=== PATIENT | male | born 1970 | race Caucasian/White ===

== ENCOUNTER 2019-02-15 00:29 | Emergency (ER) | payer MEDICARE ==
[~2019-02-15] VITALS: Ht 180.3 cm; Wt 82.1 kg
[~2019-02-15 00:29] MED LIST: BACTRIM DS 8001 TA1 PO; BUSPAR5 MG PO; CIPRO500 MG PO; FLOMAX0.4 MG PO; HALDOL5 MG PO; NAPROSYN500 MG PO; NKHM; SEROQUEL XR150 MG PO; SEROQUEL50 MG; VICODIN 5/500 505 MG; VICODIN 5/500 505 MG PO; VISTARIL25 M1 PO; VISTARIL25 M2 PO; VOLTAREN50 M1 PO
[2019-02-15] MEDS ORDERED: COUMADIN1 M1 PO (00:36)
[2019-02-15] MEDS ORDERED: ASPIRIN CHEWABL81 MG PO (00:36)
== END 2019-02-15 01:38 | disposition left against medical advice (07) ==
LOC: ED 00:29
DX: T18.128A Food in esophagus causing other injury, initial encounter (principal); Z79.82 Long term (current) use of aspirin; Z79.01 Long term (current) use of anticoagulants; X58.XXXA Exposure to other specified factors, initial encounter; Y93.89 Activity, other specified; Y92.89 Other specified places as the place of occurrence of the external cause; Y99.8 Other external cause status